=== PATIENT | female | born 1960 | race Caucasian/White ===

== ENCOUNTER → 2017-06-11 | Outpatient (CLI) | payer MEDICARE, OTHER ==
--- NOTE | 2017-06-11 11:33 | CTL ---
EXAMINATION TYPE: CT Low Dose Lung DATE OF EXAM ORDERED: 06/11/2017 COMPARISON: 01/25/2016 HISTORY: . Low Dose CT Lung Screening CT DLP: [address] CTDI: 3.61 mGy IV CONTRAST USED: None. SCREENING VISIT: First visit COMPARISON: None. TECHNIQUE: Low dose computed tomography scan was performed through the chest at 1 millimeter thick se ctions and reconstructed images in the coronal plane at [address] DIAGNOSTIC QUALITY: Satisfactory FINDINGS: LUNG NODULES: Right lung: Stable 2.5 mm nodule right upper lobe. No additional nodules are identified. Upper lobe groundglass mosaic type pattern persists although is significantly improved relative to th e prior study. Mild emphysematous changes noted. LUNGS: COPD: Severity: Mild Fibrosis: Severity:None Lymph nodes: None Other findings: None RIGHT PLEURAL SPACE: Effusion: None Calcification: None Thickening: None Pneumothorax: None LEFT PLEURAL SPACE: Effusion: None Calcification: None Thickening: None Pneumothorax: None HEART: Heart Size: Mildly enlarged Coronary calcification: Mild Pericardial effusion: None OTHER FINDINGS: Upper abdomen: No significant abnormality Bony thorax: Degenerative changes Supraclavicular region: No significant abnormalityOther: No significant abnormalityI IMPRESSION: Benign FOLLOW UP CT CHEST RECOMMENDATION: Follow-up screening in one year CT LUNG RAD: Category 1 LUNG RAD CATEGORY 1
== END | disposition home or self-care (01) ==
LOC: RADCTMAIN 11:06
PROVIDERS: ATTEND Internal Medicine Sleep Medicine
DX: Z12.2 Encounter for screening for malignant neoplasm of respiratory organs (principal); F17.200 Nicotine dependence, unspecified, uncomplicated

== ENCOUNTER → 2021-12-24 | Outpatient (CLI) | payer MEDICARE ==
[2021-12-24 14:25] LABS: African American GFR (CKD) 39.3 (60.0-200.0); Albumin 4.4 g/dL (3.8-4.9); Anion Gap 13.2 mmol/L (10.00-18.00); BUN/Creat Ratio 14.19 Ratio (12.00-20.00); Blood Urea Nitrogen 22.7 mg/dL (9.0-27.0); Calcium 10.1 mg/dL (8.7-10.3); Carbon Dioxide 24.8 mmol/L (20.0-27.5); Globulin 2.2 g/dL (1.6-3.3); Non-African American GFR(CKD) 33.9 (60.0-200.0); Potassium 4.4 mmol/L (3.5-5.5); Total Bilirubin 0.5 mg/dL (0.30-1.20); Total Protein 6.6 g/dL (6.2-8.2)
== END | disposition home or self-care (01) ==
LOC: LABWHC1 09:02
PROVIDERS: ATTEND Internal Medicine Endocrinology, Diabetes & Metabolism
DX: E11.65 Type 2 diabetes mellitus with hyperglycemia (principal)
CPT/HCPCS: 36415; 80053

== ENCOUNTER → 2022-02-25 | Outpatient (CLI) | payer MEDICARE ==
[2022-02-25 15:04] LABS: ALT 22 U/L (8-44); AST 15 U/L (13-35); African American GFR (CKD) 46.2 (60.0-200.0); Albumin 4.5 g/dL (3.8-4.9); Alkaline Phosphatase 107 U/L (41-126); BUN/Creat Ratio 18.43 Ratio (12.00-20.00); Blood Urea Nitrogen 25.8 mg/dL (9.0-27.0); Calcium 9.8 mg/dL (8.7-10.3); Carbon Dioxide 23.5 mmol/L (20.0-27.5); Chloride 106 mmol/L (96-109); Chol/HDL Ratio 5.74 Ratio; Globulin 1.8 g/dL (1.6-3.3); Glucose 148 mg/dL (70-110); LDL Cholesterol,Calculated 86.9 mg/dL (0.0-131.0); Non-African American GFR(CKD) 39.9 (60.0-200.0); Potassium 4.4 mmol/L (3.5-5.5); Sodium 145 mmol/L (135-145); Total Protein 6.3 g/dL (6.2-8.2)
== END | disposition home or self-care (01) ==
LOC: LABWHC1 09:21
PROVIDERS: ATTEND Internal Medicine Endocrinology, Diabetes & Metabolism
DX: E11.65 Type 2 diabetes mellitus with hyperglycemia (principal)
CPT/HCPCS: 36415; 80053; 80061; 82043; 82570; 83036; 84443

== ENCOUNTER → 2022-05-04 | Outpatient (CLI) | payer MEDICARE ==
--- NOTE | 2022-05-04 12:52 | MR ---
EXAMINATION TYPE: MR abdomen wo/w con DATE OF EXAM: 05/04/2022 8:31 AM INDICATION: Patient age:Female; 62 years old; Reason for study: N28.1 CYST OF KIDNEY. Known left kidney cyst, new right kidney abnormality seen on CT COMPARISON: CT scan abdomen from 04/12/2022. TECHNIQUE: Multiplanar multi-sequence imaging was performed without contrast. Post contrast imaging was performed. Post IV contrast subtraction images were also submitted for review. IV Contrast: 9 cc Gadavist FINDINGS: LOWER CHEST: No gross irregularity. ABDOMEN Liver: Signal dropout on chemical shift imaging Gallbladder and Bile ducts: Gallbladder surgically absent. Pancreas: Main duct is not dilated. There is a high T2 signal dilated duct versus cystic lesion measu ring 7 x 2 mm. Additional focus near the duodenum measuring 4 mm in the pancreatic head. Spleen: Spleen is enlarged for size. There are high T2 signal lesions throughout the spleen and repre sent cysts or hemangiomas. There is a low T2/T1 signal area measuring 1.9 cm with thin internal septa enhancement postcontrast imaging. Adrenal glands: Unremarkable. Kidneys: Right: High T2 signal renal cysts measuring up to 1.5 cm. No obstructive uropathy. No suspicious enha ncement. There are a few cysts in the right kidney demonstrate high T1 intrinsic signal cyst. Left: Multiple renal cysts with varying degrees of signal. High T2 posterior renal cyst measuring 2.7 cm most compatible with simple renal cyst. Additional intermediate T2 signal and lower signal cysts are present. These cysts have intrinsic high T1 signal within them including some with layering high T1 signal. The cysts are compatible with hemorrhagic cysts, the largest measures 1.5 cm. Additional s maller layering high T1 signal is present scattered throughout other cysts in the left kidney. The le karen in question on prior CT measures up tor 2.6 x 2.8 cm and demonstrates high T1 signal layering de pendently. Most compatible with hemorrhagic/proteinaceous cyst. Stomach and Bowel: Unremarkable as visualized. Peritoneum: No evidence of pneumoperitoneum or free fluid. Vasculature: Scattered atherosclerosis of the arterial vasculature.. No aortic aneurysm. Musculoskeletal: The osseous structures appear intact. Lymph Nodes: No gross evidence for lymphadenopathy. Abdominal wall: Small fat-containing umbilical hernia. IMPRESSION: 1. Bilateral hemorrhagic/proteinaceous cysts, left greater than right. Cyst in question in the left kidney measuring 2.6 cm also meets criteria for hemorrhagic/proteinaceous cyst. No suspicious renal m asses. 2. Scattered splenic cysts and an area of low T1/T2 signal suggestive of a benign etiology such as a sclerosing angiomatoid nodular transformation of the spleen. 3. Pancreatic head high T2 signal lesion may represent intraductal mucinous neoplasm versus prominen t duct. 3. Splenomegaly. 4. Hepatic steatosis.
== END | disposition home or self-care (01) ==
LOC: RADMRIMAIN 07:24
PROVIDERS: ATTEND Urology
DX: N28.1 Cyst of kidney, acquired (principal); N39.9 Disorder of urinary system, unspecified; K76.0 Fatty (change of) liver, not elsewhere classified; R16.1 Splenomegaly, not elsewhere classified; D73.4 Cyst of spleen; K86.89 Other specified diseases of pancreas
CPT/HCPCS: 74183; A9585

== ENCOUNTER → 2022-05-07 | Outpatient (CLI) | payer MEDICARE ==
[2022-05-07 18:29] LABS: C Reactive Protein 0.3 mg/dL (0.00-0.80); T4, Free (Free Thyroxine) 1.19 ng/dL (0.800-1.800); Uric Acid 4.7 mg/dL (2.9-7.7)
[2022-05-07 18:34] LABS: Hepatitis B Surface Antigen Nonreactive (Nonreactive); Hepatitis C IgG Antibody Nonreactive (Nonreactive)
[2022-05-07 18:50] LABS: Appearance,Urine Clear (Clear); Bilirubin,Urine Negative (Negative); Blood,Urine Negative (Negative); Color,Urine Yellow (Yellow); Ketones,Urine Negative (Negative); Nitrite,Urine Negative (Negative); Specific Gravity,Urine 1.027 (1.001-1.030); Urobilinogen,Urine 0.2 (0.2,1.0)
[2022-05-08 11:09] LABS: Angiotensin-1 Converting Enz. 56 U/L (8-52)
[2022-05-08 11:11] LABS: Aldolase 3.6 U/L (1.2-7.6)
[2022-05-08 12:05] LABS: Histone Antibody 0.2 UNITS (<1.0)
[2022-05-08 12:28] LABS: APTT 37 Sec(s) (<43); Dilute Russell Viper Venom 37 Sec(s) (<44)
[2022-05-08 13:35] LABS: HLA B27 NEGATIVE
[2022-05-08 15:18] LABS: C-ANCA <1:20 Titer (<1:20)
[2022-05-09 01:42] LABS: Anti-DNA, DS unit <1.0 IU/mL; Anti-Smith Ab Interp NEGATIVE (NEGATIVE); Cardiolipin Ab IgG Interp NEGATIVE (NEGATIVE); Cardiolipin Ab IgM Interp NEGATIVE (NEGATIVE); Cardiolipin IgM Antibody <1.5 U/mL; Centromere Antibody <0.2 AI; Centromere Antibody Interp NEGATIVE (NEGATIVE); DNA Double-Stranded NEGATIVE (NEGATIVE); Scleroderma SC-70 Ab <0.2 AI
== END | disposition home or self-care (01) ==
LOC: LABWHC1 10:29
PROVIDERS: ATTEND Internal Medicine Rheumatology
DX: R76.8 Other specified abnormal immunological findings in serum (principal)
CPT/HCPCS: 36415; 81003; 82085; 82164; 82306; 82550; 83516; 83520; 84439; 84443; 84550; 85613; 85652; 85730; 86038; 86140; 86147; 86160; 86162; 86200; 86225; 86235; 86255; 86431; 86803; 86812; 87340

== ENCOUNTER → 2022-05-28 | Outpatient (CLI) | payer MEDICARE ==
[2022-05-28 16:44] LABS: ALT 24 U/L (8-44); AST 15 U/L (13-35); African American GFR (CKD) 42.6 (60.0-200.0); Albumin 4.4 g/dL (3.8-4.9); Albumin/Globulin Ratio 2.31 (1.60-3.17); Alkaline Phosphatase 120 U/L (41-126); BUN/Creat Ratio 18.52 Ratio (12.00-20.00); Blood Urea Nitrogen 27.6 mg/dL (9.0-27.0); Carbon Dioxide 23.5 mmol/L (20.0-27.5); Chloride 104 mmol/L (96-109); Chol/HDL Ratio 6.43 Ratio; Globulin 1.9 g/dL (1.6-3.3); Glucose 184 mg/dL (70-110); LDL Cholesterol,Calculated 78.1 mg/dL (0.0-131.0); Non-African American GFR(CKD) 36.7 (60.0-200.0); Sodium 142 mmol/L (135-145); Total Protein 6.3 g/dL (6.2-8.2)
== END | disposition home or self-care (01) ==
LOC: LABWHC1 07:37
PROVIDERS: ATTEND Internal Medicine Endocrinology, Diabetes & Metabolism
DX: E11.65 Type 2 diabetes mellitus with hyperglycemia (principal)
CPT/HCPCS: 36415; 80053; 80061; 82043; 82570; 83036; 84443

== ENCOUNTER → 2022-08-21 | Outpatient (CLI) | payer MEDICARE ==
--- NOTE | 2022-08-22 11:12 | MR ---
EXAMINATION TYPE: MR MRCP DATE OF EXAM: 08/21/2022 COMPARISON: 04/12/2022, 05/05/2019 HISTORY: Abnormal MRI Standard multiplanar, multisequence MRI departmental protocol Multiplanar, multisequence images of the MRCP were acquired without contrast. FINDINGS: Limited images of the abdomen demonstrate stable multiple simple cysts of the spleen which is markedl y enlarged measuring 18 cm. Multiple prominent venous structures are seen in the splenic hilum compat ible with varices. The liver also appears to be markedly enlarged measuring 24 cm compatible. No evidence of intra or extrahepatic biliary ductal dilation. Again noted are multiple varying degree signal renal lesions some of which likely represent cysts wit h hemorrhagic component more intermediate signal subtraction angiography on prior exam demonstrated n o significant enhancement. This may represent a high proteinaceous or hemorrhagic cyst. Cortical atro phy on the right noted. Adrenal glands normal morphology. Mild atrophic change of the pancreas. 4 mm pancreatic head area of fluid signal may represent tiny cy sts. A intraductal mucinous neoplasm is not entirely excluded but the lesion is too small to characte rize and stable. A small intramuscular lipoma measuring 1.4 cm within the lateral left abdominal wall. No free fluid or free air. Exophytic lower pole lesion is seen involving the left kidney measuring 2. 5 cm. Post gastric surgery noted is evidence of previous cholecystectomy. IMPRESSION: 1. Severe hepatosplenomegaly. There is no evidence of biliary obstruction and intra-abdominal varices noted. 2. 4 mm pancreatic head area of fluid signal may represent pancreatic cyst. As previously noted a int raductal mucinous neoplasm is not entirely excluded, however, the lesion is too small to characterize and stable. There is no ductal dilation on today's exam. Short-term follow-up could be obtained 3. Cortical thinning and atrophy of the right kidney compatible with chronic medical renal disease. L esions of varying signal within the bilateral kidneys are stable likely representing hemorrhagic prot einaceous cysts intermixed with simple appearing Bosniak classification 1 cyst.
== END | disposition home or self-care (01) ==
LOC: RADMRIMAIN 07:44
PROVIDERS: ATTEND Internal Medicine Hematology & Oncology
DX: N26.1 Atrophy of kidney (terminal) (principal); R16.2 Hepatomegaly with splenomegaly, not elsewhere classified; N28.89 Other specified disorders of kidney and ureter
CPT/HCPCS: 74181

== ENCOUNTER → 2022-08-28 | Outpatient (CLI) | payer MEDICARE ==
[2022-08-28 14:31] LABS: Basophils # (A) 0.06 X 10*3/uL (0.00-0.10); Basophils % (A) 1.1 %; Eosinophils # (A) 0.15 X 10*3/uL (0.04-0.35); Eosinophils % (A) 2.9 %; HCT 46.9 % (37.2-46.3); HGB 15.6 d/dL (12.0-15.0); Lymphocytes % (A) 19.1 %; MCH 30.2 pg (27.0-32.0); MCHC 33.3 d/dL (32.0-37.0); MCV 90.9 FL (80.0-97.0); Mean Platelet Volume 11.6 FL (9.5-12.2); Monocytes # (A) 0.23 X 10*3/uL (0.20-1.00); Monocytes % (A) 4.4 %; NRBC Per 100 WBC 0 X 10*3/uL (0.00-0.01); Neutrophils # (A) 3.74 X 10*3/uL (1.80-7.70); Neutrophils % (A) 71.5 %; Platelet Count 144 X 10*3/uL (140-440); RBC 5.16 X 10*6/uL (4.10-5.20); RDW 14.3 % (11.5-14.5); WBC 5.23 X 10*3/uL (4.50-10.00)
[2022-08-28 14:58] LABS: ALT 39 U/L (8-44); AST 21 U/L (13-35); Albumin 4.4 d/dL (3.8-4.9); Albumin/Globulin Ratio 2.32 Ratio (1.60-3.17); Alkaline Phosphatase 124 U/L (41-126); Blood Urea Nitrogen 25.2 mg/dL (9.0-27.0); Calcium 10.1 mg/dL (8.7-10.3); Carbon Dioxide 24.3 mmol/L (21.6-31.8); Chloride 100 mmol/L (96-109); Chol/HDL Ratio 6.47 Ratio; Globulin 1.9 d/dL (1.6-3.3); Glucose 248 mg/dL (70-110); LDL Cholesterol,Calculated 41.9 mg/dL (0.0-131.0); Potassium 3.9 mmol/L (3.5-5.5); Sodium 140 mmol/L (135-145); Total Bilirubin 0.6 mg/dL (0.3-1.2); Total Protein 6.3 d/dL (6.2-8.2)
== END | disposition home or self-care (01) ==
LOC: LABWHC1 08:19
PROVIDERS: ATTEND Internal Medicine Endocrinology, Diabetes & Metabolism
DX: E11.65 Type 2 diabetes mellitus with hyperglycemia (principal); K76.0 Fatty (change of) liver, not elsewhere classified
CPT/HCPCS: 36415; 80053; 80061; 82043; 82105; 82570; 83036; 83721; 84443; 85025

== ENCOUNTER → 2023-02-19 | Outpatient (CLI) | payer MEDICARE ==
--- NOTE | 2023-02-23 21:03 | MR ---
EXAMINATION TYPE: MR MRCP DATE OF EXAM: 02/19/2023 COMPARISON: 08/21/2022 and 05/04/2022 HISTORY: 62-year-old female Splenomegaly, Evaluate pancreas for mass, Hx of GB removal and hysterecto my TECHNIQUE: Multiplanar, multisequence images of the abdomen were acquired without contrast. Highly T2 weighted images of the pancreatic biliary system for MRCP. Rotational 3-D reconstructions generated on a dedicated independent workstation. FINDINGS: Heart normal size without pericardial effusion. Lungs show no pleural effusion. Liver enlarged measuring 21.3 cm (versus 24.1 cm, previously). Significant loss of signal on out of p hase T1-weighted sequence compatible with fatty infiltration. Spleen enlarged measuring up to 19.1 cm on coronal series (versus 19.4 cm, previously). Numerous meta static signal intensity lesions measuring up tor 2.3 cm are redemonstrated and are indeterminate. Mos t of these likely represent small cysts. No biliary ductal dilatation. Gallbladder surgically absent. A 5 mm (axial) and 7 mm (coronal) cystic lesion of the pancreatic head remains unchanged. Adrenal glands show no gross abnormality. There is a small lipoma along the left lateral upper abdominal wall musculature measuring 2.3 x 1.8 c m. Redemonstrated multiple bilateral renal cysts of varying internal proteinaceous or hemorrhagic materi al, largest measuring up to 3.1 cm. No hydronephrosis on either side. No dilated small bowel. No upper abdominal lymphadenopathy, ascites fluid, or gross bowel abnormality is seen. IMPRESSION: 1. Stable tiny 7 x 5 mm cyst of the pancreatic head, unchanged back to 05/04/2022. Consider additional one-year surveillance follow-up. 2. Redemonstrated hepatosplenomegaly (liver 21.3 cm and spleen 19.1 cm). Underlying hepatic steatosis . Also, multiple underlying splenic lesions, mostly appearing to represent cysts, stable from prior. 3. Redemonstrated bilateral renal cortical cysts with varying degrees of hemorrhagic and proteinaceou s debris. 4. Status post cholecystectomy. No biliary ductal dilatation.
== END | disposition home or self-care (01) ==
LOC: RADMRIMAIN 09:24
PROVIDERS: ATTEND Internal Medicine Hematology & Oncology
DX: R16.2 Hepatomegaly with splenomegaly, not elsewhere classified (principal); K86.89 Other specified diseases of pancreas; K76.0 Fatty (change of) liver, not elsewhere classified; N28.1 Cyst of kidney, acquired; Z90.49 Acquired absence of other specified parts of digestive tract
CPT/HCPCS: 74181

== ENCOUNTER → 2023-09-15 | Outpatient (CLI) | payer MEDICARE ==
--- NOTE | 2023-10-14 07:47 | MM ---
Reason for Exam: Screening (asymptomatic). Last mammogram was performed 18 year(s) and 9 month(s) ago. Patient History: Menarche at age 10. Patient has no children. Left ovary removed at age 30. Hysterectomy at age 30. Excisional Biopsy on the Right side. Excisional Biopsy on the Left side. Maternal aunt had breast cancer, age 40. Risk Values: Sydni 5 year model risk: 2.8%. NCI Lifetime model risk: 10.3%. Prior Study Comparison: 02/20/2000 Bilateral Special View Mammogram, [facility]. 03/23/2001 Bilateral Screening Mammogram, [facility]. 12/28/2004 Bilateral Screening Mammogram, [facility]. Tissue Density: There are scattered areas of fibroglandular density. Findings: Analyzed By CAD. Right breast: There is no suspicious group of microcalcifications or new suspicious mass. Left breast: There is no suspicious group of microcalcifications or new suspicious mass. Benign-appearing calcifications left breast. Overall Assessment: Benign, BI-RAD 2 Management: Screening Mammogram of both breasts in [address] [facility] will attempt to contact patient to return for supplemental views and ultrasound if indicated. Patient should continue monthly self-breast exams. A clinical breast exam by your physician is recommended on an annual basis. This exam should not preclude additional follow-up of suspicious palpable abnormalities. Note on Sydni scores and lifetime risk: 1. A Sydni score greater than 3% is considered moderate risk. If this is the case, consider specialist referral to assess eligibility for a risk reducing agent. 2. If overall lifetime risk for the development of breast cancer is 20% or higher, the patient may qualify for future screening with alternating mammogram and breast MRI. Electronically signed and approved by: Faheem Ventura DO
== END | disposition home or self-care (01) ==
LOC: RADMAMWWP 07:25
PROVIDERS: ATTEND Family Medicine
DX: Z12.31 Encounter for screening mammogram for malignant neoplasm of breast (principal); Z80.3 Family history of malignant neoplasm of breast; Z90.721 Acquired absence of ovaries, unilateral; R92.323 Mammographic fibroglandular density, bilateral breasts
CPT/HCPCS: 77063; 77067

== ENCOUNTER → 2023-09-22 | Outpatient (CLI) | payer MEDICARE ==
--- NOTE | 2023-10-15 11:19 | CONS ---
CONSULTATION 63-year-old lady has been evaluated in Sleep Center for obstructive sleep apnea- hypopnea syndrome. HISTORY OF PRESENT ILLNESS: Sleep-wake evaluation. The patient has been diagnosed with obstructive sleep apnea in our institution about 10 years ago. At that time, according to the patient, she had severe sleep apnea with apnea-hypopnea index of 65. She was treated with CPAP for 7 years but then lost weight, feels better and stopped using CPAP about 5 years ago. Presently, her sleep schedule from about 11 p.m. to 8:00 a.m., 7 days a week. Sometimes she has problems with falling asleep, she has TV set in bedroom. She usually sleeps on the side position with significant amount of leg movements at night and wakes up from sleep 3 times with 2 episodes of nocturia. In the morning, the patient wakes up tired and feels some sleepiness during the day. Prather Sleepiness Scale is 7. The patient may take 1 nap around 1:30 to 4:00 p.m. No history of hypnagogic hallucinations, sleep paralysis, or cataplexy. PAST MEDICAL HISTORY: Positive for hypertension, diabetes mellitus, kidney disease stage 3, hyperlipidemia, acid reflux, gout. PAST SURGICAL HISTORY: Left knee replacement, partial hysterectomy, benign lump removed from left breast. SOCIAL HISTORY: Positive for smoking for about 50 pack-years. The patient continues to smoke. Alcohol consumption, none. MEDICATIONS: 1. Rosuvastatin 20 mg once a day. 2. Farxiga 10 mg once a day. 3. Losartan 25 mg once a day. 4. Kerendia 10 mg once a day. 5. Hydrochlorothiazide 12.5 mg once a day. 6. Sertraline 50 mg once a day. 7. Omeprazole 20 mg once a day. 8. Allopurinol 100 mg once a day. 9. Calcitriol 0.25 mcg 3 times a week. 10.Ozempic 0.25 mg once a week. FAMILY HISTORY: Hypertension, hyperlipidemia, acid reflux, diabetes mellitus, liver problems, restless legs. REVIEW OF SYSTEMS: Multiple awakenings from sleep, sleepiness during the day. No fevers. No double vision. No recent chest pain. No shortness of breath. No abdominal pain. No bleeding episodes. No blood in the urine. No seizure episodes. PHYSICAL EXAMINATION: GENERAL: A 63-year-old lady without distress. VITAL SIGNS: BP 148/80, HR 88, RR 16, height 5 feet 3 inches, weight 228 pounds, BMI 40.3, temperature 98.0, oxygen saturation at room air 97%. HEENT: PERRLA, EOMI, evaluation of oropharynx showed tongue protrudes midline. Oropharynx, extremely low position of soft palate, Mallampati 3-4. NECK: 14.5 inches in circumference, supple, no JVD. Thyroid is not palpable. LUNGS: Clear to percussion and to auscultation. Good air exchange. No wheezing or rhonchi. HEART: S1, S2 regular. No murmurs, gallops, or rubs. ABDOMEN: Slightly obese. Soft and nontender. Bowel sounds are present. No organomegaly appreciated. EXTREMITIES: No clubbing or cyanosis. OUTPATIENT PHARMACY MANAGER: Awake, alert, and oriented X3. Cranial nerves 2 to 7 intact. There is no fasciculation or atrophy. noted. No focal deficits observed. IMPRESSION: 1. Multiple awakenings from sleep, extremely low position of soft palate, Mallampati 3- 4, sleepiness, history of obstructive sleep apnea in the past. Obstructive sleep apnea-hypopnea syndrome. 2. Obesity, BMI 40.3. 3. Significant amount of movements during the sleep, possibly periodic limb movements. 4. Diabetes mellitus. 5. Hypertension. 6. Kidney disease stage 3. 7. Hyperlipidemia. 8. Acid reflux. 9. Gout. 10.Status post left knee replacement. 11.Status post partial hysterectomy. 12.Status post benign lump removed from left breast. PLAN: 1. Polysomnography for evaluation of patient breathing during sleep. 2. Following plan after reviewing sleep study. 3. Sleep hygiene, regular time in bed for at least 8 hours. 4. No driving if feeling sleepiness. 5. Losing weight. Thank you very much for referring this patient for consultation. Sincerely, MMODL / IJN: [id number] /
== END ==
LOC: 3 N SLEEP 15:00
PROVIDERS: ATTEND Internal Medicine
CPT/HCPCS: 99211

== ENCOUNTER 2023-11-03 19:33 | Outpatient (CLI) | payer MEDICARE ==
--- NOTE | 2023-11-05 11:32 | P.PCN ---
Description of Procedure: POLYSOMNOGRAPHY REPORT PROCEDURE(S)/DATE(S): Polysomnography 11/03/2023 CLINICAL: Patient has been seen in the sleep center for evaluation of obstructive sleep apnea-hypopnea syndrome. Please see my consultation. Sleep study has been done for evaluation of patient breathing during the sleep. PROCEDURE: The standard montage for clinical polysomnography included the electroencephalogram, the electrooculogram, the mentalis surface electromyography and Lead II cardiography. The respiratory battery consisted of measurements of nasal/buccal air flow, pressure transducer measurements from nose, thoracic and/or abdominal effort and intercostal surface electromyography. Video monitoring has been done to check for any parasomnia events. Nocturnal oxyhemoglobin saturations were obtained by finger oximetry. Step-llamas titration with positive airway pressure was utilized to control the respiratory events, if necessary. RESULTS: During the diagnostic sleep study sleep efficiency was borderline 88.4%. Latency to sleep onset was normal at 13.0 min. Sleep architecture showed stage NI was normal 6.6%, Delta sleep was normal 17.1%, REM sleep was decreased to 8.8%. Respiratory channel showed 0 obstructive apneas, 1 mixed apneas, 1 central apneas, 25 hypopneas with lowest oxygen level 79%. Total apnea hypopnea index was 4.4, in rem sleep 26.3. Oxygen level was below 89% for 5 hours and 15 minutes. Heart rate was in the range between 66 and 71, average 68. EMG showed 37.3 periodic limb movements per hour with 1.2 micro-arousals per hour. IMPRESSIONS: 1. Patient with history of obstructive sleep apnea hypopnea syndrome in the past, was on treatment with CPAP and then improved after losing weight. Sleep study showed total apnea hypopnea index in normal range, but significant abnormalities of respiration in Rem sleep with apnea hypopnea index 26.3. 2. Oxygen level was below 89% for 5 hours and 15 minutes. 3. Significant periodic limb movements have been documented. Please see other impressions from consultation PLAN: 1. I will see patient for follow-up visit to discuss results of the test and recommendations. 2. Losing weight program. 3. Sleep hygiene with regular time in bed for at least 7-1/2 hours. 4. No driving if feeling sleepiness. 5. Please check iron profile including ferritin level. Low level of iron may increase the risk for periodic limb movements. Thank you very much for allowing me to participate in the management of your patient. Sincerely, Richmond Gerard MD, PhD, FAASM. Diplomat of [employer] [employer], Sleep Medicine Board by [employer] [employer] Operator of [facility] [place] cc: Socrates Lee DO
== END 2023-11-04 05:35 | disposition home or self-care (01) ==
LOC: 3 N SLEEP 19:33
PROVIDERS: ATTEND Internal Medicine
CPT/HCPCS: 95810

== ENCOUNTER → 2023-11-06 | Outpatient (CLI) | payer MEDICARE ==
[2023-11-06 11:47] VITALS: BP 140/83; PULSE 72; RESP 16; TEMP 97.7
--- NOTE | 2023-11-06 12:16 | P.PROGSL ---
Subjective DATE: 11/06/2023 FOLLOW UP VISIT. Patient returned to sleep center for follow-up visit to discuss results of the test and recommendations. Patient has history of obstructive sleep apnea in the past in severe range. Apnea hypopnea index 65, then lost weight and did not use any CPAP equipment recently. Polysomnogram showed borderline normal apnea hypopnea index, but in rem sleep very high 26.3 with very significant oxygen desaturation to 79% for 5 hours and 15 minutes below 89%. [place] sleepiness scale is 3. MEDICATIONS: Please see below During physical exam: GENERAL: A pleasant patient without any distress. VITAL SIGNS: Please see below. HEENT: PERRLA, EOMI. NECK: Supple. No JVD. LUNGS: Clear to percussion and to auscultation. Good air exchange. No wheezing or rhonchi. HEART: S1, S2 regular. ABDOMEN: Soft and nontender. EXTREMITIES: No clubbing or cyanosis. ENGINEERING TECHNOLOGIST: Awake, alert, and oriented x3. No focal deficit. Impressions: 1. Multiple awakenings from sleep, extremely low position of soft palate Mallampati 34. Obstructive sleep apnea hypopnea syndrome. By results of polysomnogram apnea hypopnea index with 4% oxygen desaturation 4.4 and with 3% oxygen saturation 4.9, and in REM sleep 26.3. During polysomnogram patient had only 1 period of REM sleep, which could be the reason for false negative results of test. 2. Oxygen desaturation below 89% during the sleep test for 5 hours and 15 minutes. 3. Obesity, BMI in the range of 40. 4. Diabetes mellitus. 5. Hypertension. 6. Kidney disease stage III. 7. Hyperlipidemia. 8. Acid reflux. 9. Gout. 10 status post left knee replacement. 11. Status post partial hysterectomy. Plan: 1. Home sleep apnea test to reevaluate patient breathing during the sleep. 2. Sleep hygiene with regular time in bed for at least 8 hours. 3. Following plan after reading home sleep apnea test 4. Precautions related to driving. No driving if feel any sleepiness. Patient is aware about civil and criminal liability for unsafe driving, promised to follow recommendations. Thank you very much for allowing me to participate in the management of your patient. Richmond Gerard MD, PhD, FAASM. Diplomat of [place] [employer], Sleep Medicine Board by [place] [employer] of [facility] [place] cc: Socrates Lee DO Objective - Vital Signs Vital Signs: Vital Signs Temp 97.7 F 11/06/23 11:47 Pulse 72 11/06/23 11:47 Resp 16 11/06/23 11:47 BP 140/83 11/06/23 11:47 Pulse Ox 97 11/06/23 11:47 FiO2 Intake & Output 11/05/23 11/06/23 11/06/23 18:59 06:59 18:59 Weight 103.419 kg
== END ==
LOC: 3 N SLEEP 11:39
PROVIDERS: ATTEND Internal Medicine
CPT/HCPCS: 99212

== ENCOUNTER → 2023-11-20 | Outpatient (CLI) | payer MEDICARE ==
--- NOTE | 2023-11-26 11:38 | P.PCN ---
Description of Procedure: CLINICAL: A home sleep apnea test has been done for confirmation of possible obstructive sleep apnea-hypopnea syndrome. DESCRIPTION OF PROCEDURE: RESULTS: Recording time was 8 hours 24 minutes. Evaluation time was 8 hours 13 minutes. Evaluation time is sufficient for making conclusion about results of the test. Raw data of sleep recording has been reviewed and is adequate. Respiratory channel showed 3 apneas and 60 hypopneas. Apnea-hypopnea index was 7.7 per hour. Pulse rate in the range between minimum 60, maximum 80, average 71 by computer calculation. Lowest desaturation was 79%. IMPRESSION: 1. Obstructive Sleep Apnea Hypopnea Syndrome. 2. Hypertension Please see other impressions from consultation. PLAN: 1. The patient will be started on auto-PAP treatment for correction of respiratory abnormallities during sleep. 2. I will see patient for follow up visit to discuss results of the test, evaluate clinical response on treatment with PAP therapy and make any necessary adjustments related to mask fitting, pressure, and humidification. 3. Watching and losing weight. 4. Sleep hygiene with regular time in bed for at least 8 hours. 5. No driving if feeling any sleepiness. Thank you very much for allowing me to participate in the management of your patient. Sincerely, Richmond Gerard MD, PhD, FAASM Diplomat of [employer] Sleep Medicine Board of [employer] [facility] [place] cc: Socrates Lee DO
== END | disposition home or self-care (01) ==
LOC: 3 N SLEEP 16:42
PROVIDERS: ATTEND Internal Medicine

== ENCOUNTER → 2024-02-23 | Outpatient (CLI) | payer MEDICARE ==
--- NOTE | 2024-02-23 11:01 | MR ---
EXAMINATION TYPE: MR MRCP DATE OF EXAM: 02/23/2024 9:59 AM COMPARISON: 02/19/2023 08/21/2022. CLINICAL INDICATION: Female, 63 years old with history of R16.1 spleenomegaly; PHH, SPOT ON PANCREASE AND ENLARGED SPLEEN - ANNUAL MR TO EVALUATE TECHNIQUE: Multi planar, T2-weighted imaging with and without fat saturation and chemical shift imag ing was performed of the abdomen. Then, heavily T2 weighted imaging (half-Fourier acquisition single- shot turbo spin-echo) was utilized in order to study the biliary system. Maximum intensity projectio n images were reconstructed from the original data of the biliary tree. 3D images were created on a [employer] work station. No Gadolinium given. FINDINGS: Lower Thorax: No evidence for acute process. MRCP: * The intrahepatic ducts have a normal appearance. * The extrahepatic ducts have a normal appearance. * The common hepatic duct measures 3 mm in size. * The common bile duct at the level of the pancreatic head measures 3 mm in size. * The pancreatic duct is normal. * The gallbladder appears surgically absent. Abdomen: Liver: No evidence for cirrhosis. Signal dropout on chemical shift out of phase imaging. Pancreas: No ductal dilation. No evidence for solid mass. Similar pancreatic head 7 mm cyst with a co uple smaller daughter cyst adjacent. Spleen: Enlarged measuring up to 17.8 cm. High T2 signal cysts are seen throughout the parenchyma dilcia e with septations. Is at least one low T1 and low T2 signal area suggestive of calcification. Adrenal glands: Unremarkable. Kidneys: Bilateral simple and slightly complex renal cysts with more intermediate T2 signal. These ar e not significantly changed from prior. Stomach and Bowel: No evidence for bowel wall thickening or evidence for obstruction. Retroperitoneum/Peritoneum: No evidence of pneumoperitoneum or free fluid. Vasculature: No aortic aneurysm. Musculoskeletal: The osseous structures appear intact. Lymph Nodes: No gross evidence for lymphadenopathy. Abdominal wall: Unremarkable. IMPRESSION: 1. No evidence to suggest ductal stricture, choledocholithiasis, or biliary ductal dilatation. 2. Pancreatic head 7 mm cystic lesion possibly representing sequela of prior pancreatitis versus vijaya e branch intraductal mucinous neoplasm versus other cystic neoplasms. Attention on follow-up imaging in 2 years with MRI MRCP with contrast to ensure stability. 3. Hepatic steatosis. 4. Splenomegaly. 5. Bilateral Bosniak type I and type II renal cyst as seen on prior on 05/04/2022. 6. Postcholecystectomy changes. 7. Stable splenic cysts. [facility], , 02/23/2024 10:59 AM
== END | disposition home or self-care (01) ==
LOC: RADMRIMAIN 08:30
PROVIDERS: ATTEND Internal Medicine Hematology & Oncology
DX: R16.1 Splenomegaly, not elsewhere classified (principal); K76.0 Fatty (change of) liver, not elsewhere classified; D73.4 Cyst of spleen; N28.1 Cyst of kidney, acquired; Z98.890 Other specified postprocedural states
CPT/HCPCS: 74181